=== PATIENT | male | born 1960 | race Two or more races ===

== ENCOUNTER 2019-12-17 13:19 | Outpatient (CLI) | payer MEDICAID ==
[~2019-12-17 13:19] MED LIST: XARELTO10 MG ORAL
--- NOTE | 2019-12-23 13:54 | General Progress Note ---
Assessment/Plan Assessment/Plan: rectal polyp x 3 diverticulosis repeat colonoscopy in 5 years Subjective ROS Limited/Unobtainable: Yes Allergies: Coded Allergies: No Known Allergies (Unverified , 09/18/19) Objective General Appearance: alert EENT: normal ENT inspection Neck: supple Cardiovascular: normal rate Respiratory/Chest: lungs clear Abdomen: normal bowel sounds, non tender, soft Extremities: non-tender Ortega Peter MD Dec 23, 2019 13:54
== END 2019-12-17 15:19 | disposition home or self-care (01) ==
LOC: PAN 13:19
DX: R10.9 Unspecified abdominal pain (principal)
CPT/HCPCS: 99212